=== PATIENT | female | born 1995 | race Two or more races ===

== ENCOUNTER 2023-10-03 12:29 | Emergency (ER) | payer OTHER ==
[~2023-10-03] VITALS: Ht 157.5 cm; Wt 77.1 kg
[2023-10-03] MEDS ORDERED: BENTYL10 MG/1 ML IM (13:16)
[2023-10-03] MEDS ORDERED: PROTONIX40 MG PO (13:16)
[2023-10-03] MEDS ORDERED: FAMOTIDINE/PF 20 MG in 0.9 % SODIUM CHLORIDE 8 ML IV PUSH STA (13:35)
[2023-10-03] MEDS ORDERED: ONDANSETRON HCL 2 MG/ML VIAL IV STA (13:35)
[2023-10-03] MEDS ORDERED: MEPERIDINE HCL/PF 25 MG/ML VIAL IV ONE (13:45)
[2023-10-03 14:23] LABS: HEMATOCRIT 42.3 % (36.0-45.00); HEMOGLOBIN 14.4 g/dL (12.0-15.00); MEAN CELL VOLUME 87.4 fL (80.00-100.00); MEAN CORPUSCULAR HEMOGLOBIN 29.8 pg (27.00-32.0); MEAN CORPUSCULAR HGB CONC 34.1 g/dl (32.0-36.0); PLATELET COUNT 355 K/uL (150-450); RED BLOOD COUNT 4.83 M/uL (4.00-6.00); RED CELL DISTRIBUTION WIDTH 13.3 % (11.5-14.5)
[2023-10-03 14:50] LABS: CALCIUM 10.2 mg/dL (8.5-10.1); CREATININE SERUM 0.64 mg/dL (0.55-1.02); GFR 111.31; POTASSIUM 4.11 mEq/L (3.5-5.1)
== END 2023-10-03 16:02 | disposition home or self-care (01) ==
LOC: ER 12:30
PROVIDERS: Emergency Medicine
DX: R10.9 Unspecified abdominal pain (principal); Z88.6 Allergy status to analgesic agent

== ENCOUNTER 2024-11-03 14:42 | Emergency (ER) | payer OTHER ==
[~2024-11-03] VITALS: Ht 157.5 cm; Wt 79.4 kg
[~2024-11-03 14:42] MED LIST: BENTYL10 MG/1 ML IM; PROTONIX40 MG PO
[2024-11-03] MEDS ORDERED: 0.9 % SODIUM CHLORIDE 1,000 ML IV STA (16:38)
[2024-11-03 17:27] LABS: HEMATOCRIT 36.7 % (36.0-45.00); HEMOGLOBIN 12.5 g/dL (12.0-15.00); MEAN CORPUSCULAR HEMOGLOBIN 30.4 pg (27.00-32.0); MEAN CORPUSCULAR HGB CONC 34.2 g/dl (32.0-36.0); PLATELET COUNT 300 K/uL (150-450); RED BLOOD COUNT 4.12 M/uL (4.00-6.00); RED CELL DISTRIBUTION WIDTH 14.4 % (11.5-14.5)
[2024-11-03 17:49] LABS: BILIRUBIN TOTAL 0.18 mg/dL (0.3-1.2); CALCIUM 9.2 mg/dL (8.5-10.1); CREATININE SERUM 0.56 mg/dL (0.55-1.02); GFR 128.9; GLOBULINA 4.4 G/DL (2.4-3.5); POTASSIUM 3.64 mEq/L (3.5-5.1); TOTAL PROTEIN 7.4 gm/dL (6.4-8.2)
[2024-11-03 19:21] LABS: PH,URINE 7.5 (5.0-8.0); URINE APPEARANCE Turbid; URINE BILIRRUBIN Negative (NEGATIVE); URINE BLOOD Negative; URINE COLOR Yellow; URINE GLUCOSE Negative (NEGATIVE); URINE KETONE Negative (NEGATIVE); URINE LEUKOCYTE Large; URINE NITRATE Negative; URINE PROTEIN Negative (NEGATIVE); URINE UROBILINOGEN 0.2 E.U./dl
[2024-11-03 19:36] LABS: URINE EPITHELIAL CELLS 35.9 uL (0.0-38.8); URINE WBC 167.8 uL (0.0-23.2)
[2024-11-03 20:59] LABS: URINE CAST 0.44 uL (0.0-1.40)
[2024-11-03 21:00] LABS: URINE CRYSTALS MODERATE /HPF
[2024-11-03] MEDS ORDERED: CEFTRIAXONE SODIUM 2,000 MG VIAL IV STA (21:06)
== END 2024-11-03 19:36 | disposition home or self-care (01) ==
LOC: ER 14:45
DX: N39.0 Urinary tract infection, site not specified (principal); R10.9 Unspecified abdominal pain; Z3A.18 18 weeks gestation of pregnancy; Z88.6 Allergy status to analgesic agent